=== PATIENT | male | born 1930 | race Caucasian/White ===

== ENCOUNTER 2016-07-31 11:10 | Emergency (ER) | payer OTHER, BC ==
[~2016-07-31] VITALS: Ht 182.9 cm; Wt 85.2 kg
[~2016-07-31 11:10] MED LIST: ALBUTEROL SULF8.5 GM IH; ALLOPURINOL300 MG PO; AMLODIPINE BESYL5 MG PO; ASCORBIC ACID500 M3 PO; ASPIR 8181 M1 PO; ASTELIN PO; CHONDROITIN1 CAPSULE PO; FISH OIL 1,0001 EAC7 PO; FLOMAX0.4 MG PO; FLUORIDE0.5 MG PO; GLUCOSAMINE 1,1 EAC1 PO; GLUCOSAMINE H1500 MG PO; HYDROCHLOROTH12.5 M1 PO; HYDROCHLOROTH12.5 M3 PO; LO-DOSE ASPIRIN81 M1 PO; MEGA MULTI FOR1 EAC1 PO; MEGA MULTIVITA1 EACH PO; METOPROLOL TART25 MG PO; NASONEX17 GM BOTH NARES; OMEGA 3-6-9 11200 MG PO; OPTIFLEX-C400 MG PO; PROTONIX40 MG PO; SYNTHROID50 MCG PO; TAMIFLU75 MG PO; TRICOR145 MG PO; VITAMIN C500 M1 PO; VITAMIN D400 UNIT PO; ZESTRIL,PRINIVI20 MG PO; ZITHROMAX Z-PA250 MG PO
[2016-07-31] MEDS ORDERED: ZETIA10 MG PO (13:53)
[2016-07-31 14:18] LABS: HEMATOCRIT 41.6 % (38.0-50.0); MCH 34.3 PG (29.0-34.0); MCHC 34.4 G/DL (30.0-36.0); MCV 99.8 FL (86-99); MEAN PLAT.VOLUME 10.1 uM^3 (9.0-12.4); PLATELET COUNT 136 K/uL (156-360); RBC DIS.WIDTH-CV 13.4 % (11.8-14.6); RBC DIS.WIDTH-SD 48.6 % (39-53); RED BLOOD COUNT 4.17 M/uL (4.00-5.50); WHITE BLOOD COUNT 11.1 K/uL (4.1-10.2)
[2016-07-31 14:24] LABS: ANION GAP 8 MEQ/L (2-14); CHLORIDE 105 MEQ/L (99-109); GFR ESTIMATE (CALCULATED) 44 mL/min/; GLUCOSE 101 mg/dL (70-99); POTASSIUM 3.9 MEQ/L (3.7-5.4); SAMPLE HEMOLYSIS CHECK 0; SAMPLE ICTERIC CHECK 0; SAMPLE LIPEMIA CHECK 0; SODIUM 142 MEQ/L (136-147); UREA NITROGEN (BUN) 23 mg/dL (9-23)
[2016-07-31] MEDS ORDERED: TESSALON PERLE100 MG PO (15:04)
[2016-07-31 15:10] VITALS: BP 142/74
== END 2016-07-31 15:11 | disposition home or self-care (01) ==
LOC: EME 11:10
PROVIDERS: Emergency Medicine
DX: J06.9 Acute upper respiratory infection, unspecified (principal); K21.9 Gastro-esophageal reflux disease without esophagitis; I25.2 Old myocardial infarction; Z86.73 Personal history of transient ischemic attack (TIA), and cerebral infarction without residual deficits; Z95.1 Presence of aortocoronary bypass graft
CPT/HCPCS: 71020; 80048; 85027; 99281; 99284

== ENCOUNTER 2017-11-02 11:36 | Emergency (ER) | payer OTHER, BC ==
[~2017-11-02] VITALS: Ht 182.9 cm; Wt 86.3 kg
[~2017-11-02 11:36] MED LIST changes: +TESSALON PERLE100 MG PO; +ZETIA10 MG PO
[2017-11-02] MEDS ORDERED: SUDAFED PE PRE1 EAC2 PO (13:19)
[2017-11-02 13:39] VITALS: BP 145/76
== END 2017-11-02 13:41 | disposition home or self-care (01) ==
LOC: EME 11:36 → RME 11:36
DX: J06.9 Acute upper respiratory infection, unspecified (principal); I10 Essential (primary) hypertension; I25.2 Old myocardial infarction; Z79.82 Long term (current) use of aspirin
CPT/HCPCS: 99281; 99283